=== PATIENT | male | born 1985 | race Two or more races ===

== ENCOUNTER 2016-11-22 18:01 | Emergency (ER) | payer OTHER ==
--- NOTE | 2016-11-22 19:51 | ED Physician Chart ---
Chief Complaint/HPI - Patient Information Date Seen:: 11/22/16 Time Seen:: 19:35 Chief Complaint:: red eyes History of Present Illness:: Patient's had conjunctival redness for the last 1 week. He's had no upper respiratory tract infection or cough recently. He has been applying eyedrops that he obtained in [place] for the last 1 week. He does not know the name of the eyedrops. Allergies:: Allergies Allergy/AdvReac Type Severity Reaction Status Date / Time No Known Allergies Allergy Verified 12/22/15 01:43 Vitals:: Vital Signs - 8 hr 11/22/16 19:20 Temp 96.7 F HR 82 RR 20 BP 120/87 O2 Sat % 99 Historian:: Patient Review:: Nurse's Note Reviewed Review of Systems - Review of Systems General/Constitutional: No fever, No chills Skin: No skin lesions Head: No headache Eyes: No loss of vision, Other (conjunctival erythema) ENT: No earache, No sore throat Neck: No neck pain Cardio Vascular: No chest pain, No palpitations Pulmonary: No SOB GI: No nausea, No vomiting G/U: No dysuria Endocrine: No polyuria, No polydipsia Psychiatric: No prior psych history Past Medical History - Past Medical History Past Medical History: No significant medical hx Family History: None Social History: Non Smoker, No Alcohol Surgical History: None Psychiatricy History: None Medication: Reviewed Family Medical History - Family Member Mother History Unknown: Yes Physical Exam - Physical Examination General/Constitutional: Well-developed, well-nourished, Alert, No distress Head: Atraumatic Eyes: PERRL Other Eyes comments:: 2 out of 4 conjunctival erythema Skin: Nl inspection, No rash, No skin lesions, No ecchymosis, Well hydrated, No lymphadenopathy ENMT: External ears, nose nl, TM canals nl, Nasal exam nl, Lips, teeth, gums nl , Oropharynx nl, Tonsils nl Neck: No nuchal rigidity Respiratory: Nl effort/Exclusion, Clear to Auscultation, No Wheeze/Rhonchi/Rales Cardio Vascular: RRR GI: No tenderness/rebounding/guarding, No organomegaly, No hernia : No CVA tenderness Extremities: No tenderness or effusion Neuro/Psych: Alert/oriented, No focal deficits Misc: Normal back Assessment - Assessment General Assessment: Note given the patient may return to work tomorrow ED Septic Shock - . Is Septic Shock (SBP<90, OR Lactate>4 mmol\L) present?: No - <6hrs of presentation: Vital Signs: Vital Signs - 8 hr 11/22/16 19:20 Temp 96.7 F HR 82 RR 20 BP 120/87 O2 Sat % 99 Reassessment (Disposition) - Reassessment Reassessment Condition:: Unchanged - Diagnosis Diagnosis:: Conjunctivitis - Aftercare/Follow up Instructions Medication Prescribed:: sulamyd 10% ophthalmic to apply 1 drop both eyes every 2 hours while awake - Patient Disposition Discharge/Transfer:: Home Condition at Disposition:: Stable, Unchanged ED Discharge Plan - Patient Disposition Instructions: Bacterial Conjunctivitis
== END 2016-11-22 23:31 | disposition home or self-care (01) ==
LOC: ER 18:01
DX: H10.9 Unspecified conjunctivitis (principal)
CPT/HCPCS: Z7502